=== PATIENT | female | born 1990 | race American Indian/Alaskan Native ===

== ENCOUNTER 2017-09-16 19:38 | Emergency (ER) | payer SELFPAY ==
[2017-09-16 20:01] VITALS: BP 126/75
[2017-09-16] MEDS ORDERED: TYLENOL PO ONE (20:05)
[2017-09-16 20:19] LABS: Basophils % (Auto) 0.4 % (0.0-1.8); Eosinophils % (Auto) 0.1 % (0.0-4.3); Hematocrit 36.8 % (30.3-42.9); Hemoglobin 12.2 gm/dl (10.1-14.3); Mean Corpuscular HGB Conc 33 % (30-34); Mean Corpuscular Hemoglobin 27 pg (28-32); Mean Corpuscular Volume 83 fl (79-97); Platelet Count 156 K/mm3 (140-440); Red Blood Count 4.47 M/mm3 (3.65-5.03); Red Cell Distribution Width 14.9 % (13.2-15.2); White Blood Count 10.8 K/mm3 (4.5-11.0)
[2017-09-16 20:42] LABS: Anion Gap 20 mmol/L; BUN/Creatinine Ratio 10; Blood Urea Nitrogen 7 mg/dL (7-17); Calcium 8.5 mg/dL (8.4-10.2); Carbon Dioxide 19 mmol/L (22-30); Chloride 97.4 mmol/L (98-107); Glucose 116 mg/dL (65-100); Potassium 3.2 mmol/L (3.6-5.0); Sodium 133 mmol/L (137-145)
== END 2017-09-17 02:35 | disposition left against medical advice (07) ==
LOC: ED 19:38
DX: R07.9 Chest pain, unspecified (principal); Z53.21 Procedure and treatment not carried out due to patient leaving prior to being seen by health care provider
CPT/HCPCS: 36415; 80048; 84484; 85025; 93005; 93010